=== PATIENT | male | born 1950 | race Caucasian/White ===

== ENCOUNTER 2016-11-21 01:52 | Emergency (ER) | payer MEDICARE, BC ==
[2016-11-21] MEDS ORDERED: Amoxicillin/Clavulanate TAB* 875 MG PO ONE (04:56)
[2016-11-21] MEDS ORDERED: Tetan/Diph/Pertus SYR(Tdap)* 0.5 ML SYR(BOOSTRIX) use SYR IM ONE (04:56)
[2016-11-21] MEDS ORDERED: Lidocaine 2% EPI 1:200000 MPF* 20 ML VIAL INJ ONE (05:34)
[2016-11-21] MEDS ORDERED: Lidocaine 2% EPI 1:200000 MPF* 20 ML VIAL ONE (05:36)
--- NOTE | 2016-11-21 07:35 | ED ---
Hi Branham Rebecca, scribed for Nils Snider MD on 11/21/16 at 0431 . Bite Injury/Animal - HPI Summary HPI Summary: Pt is a 66 y/o M who presents to ED s/p dog bite to the R forearm. At approximately 0100 this morning, the pt was trying to move his elderly dog when he bit him. 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 Unsure of his own Tetanus shot, believing to have had one in the last 10 years but is unsure. Right hand dominant. - History of Current Complaint Chief Complaint: EDAnimalBite Stated Complaint: DOG BITE Time Seen by Provider: 11/21/16 04:23 Hx Obtained From: Patient Onset of Injury: Happened hours ago Type of Bite: Pet Has Animal Been Immunized?: Yes Severity Currently: Severe Pain Intensity: 8 Pain Scale Used: 0-10 Numeric Aggravating Factor(s): Nothing Alleviating Factor(s): Nothing Associated Signs And Symptoms: Positive: Negative - Allergies/Home Medications Allergies/Adverse Reactions: Allergies Allergy/AdvReac Type Severity Reaction Status Date / Time No Known Allergies Allergy Verified 11/21/16 01:56 PMH/Surg Hx/FS Hx/Imm Hx Endocrine/Hematology History: Denies: Hx Diabetes Cardiovascular History: Denies: Hx Coronary Artery Disease, Hx Hypertension Infectious Disease History: No Infectious Disease History: Denies: Traveled Outside the [place] in Last 30 Days - Family History Known Family History: Negative: Diabetes - Social History Alcohol Use: None Substance Use Type: Reports: Marijuana Smoking Status (MU): Former Smoker Review of Systems Negative: Fever Positive: Other - Animal bite to the R forearm All Other Systems Reviewed And Are Negative: Yes Physical Exam - Summary Physical Exam Summary: The patient is well-nourished in no acute distress and in no acute pain. The skin is warm and dry and skin color reflects adequate perfusion. Examination of the R forearm reveals that it has a flap laceration down to the subcutaneous fat that is triangular. Distal neurovascular is intact. HEENT: The head is normocephalic and atraumatic. The pupils are equal and reactive. The conjunctivae are clear and without drainage. Nares are patent and without drainage. Mouth reveals moist mucous membranes and the throat is without erythema and exudate. The external ears are intact. The ear canals are patent and without drainage. The tympanic membranes are intact. Neck is supple with full range of motion and non-tender. There are no carotid bruits. There is no neck vein distension. Respiratory: Chest is non-tender. Lungs are clear to auscultation and breath sounds are symmetrical and equal. Cardiovascular: Hear is regular rate and rhythm. There is no murmur or rub auscultated. There is no peripheral edema and pulses are symmetrical and equal. Musculoskeletal: There is no back pain noted. Extremities are non-tender with full range of motion. There is good capillary refill. There is no peripheral edema or calf tenderness elicited. Neurological: Patient is alert and oriented to person, place and time. Psychiatric: The patient has an appropriate affect and does not exhibit any anxiety or depression. Triage Information Reviewed: Yes Vital Signs On Initial Exam: Initial Vitals Temp Pulse Resp BP Pulse Ox 97.2 F 105 20 172/126 99 11/21/16 01:54 11/21/16 01:54 11/21/16 01:54 11/21/16 01:54 11/21/16 01:54 Vital Signs Reviewed: Yes - Manjinder Coma Scale Coma Scale Total: 15 Procedures - Laceration/Wound Repair 1 Location: upper extremity Description: Irregular - Flap Anesthesia: 2.0%, Lido, Epi - 13 cc used Length, Depth and Shape: 3.5 cm long, about 3 cm wide, a triangle, down about 4 mm, Irrigated w/ Saline (ccs): 250 - Saline, by nursing Closure: Multilayer Debridement: moderate Suture Type: Prolene - Skin - 17 3.0 Prolene sutures, Vicryl - Subcutaneous - 8 3.0 Vicryl sutures Layer Closure?: Yes Sterile Dressing Applied?: Yes Diagnostics - Vital Signs Vital Signs Temp Pulse Resp BP Pulse Ox 11/21/16 01:54 97.2 F 105 20 172/126 99 - Laboratory Lab Statement: Any lab studies that have been ordered have been reviewed, and results considered in the medical decision making process. Bite Injury Course/Dx - Course Assessment/Plan: Pt is a 66 y/o M who presents to ED s/p dog bite to the R forearm. At approximately 0100 this morning, the pt was trying to move his elderly dog when he bit him. 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 Unsure of his own Tetanus shot, believing to have had one in the last 10 years but is unsure. Right hand dominant. Laceation was complex, down to the subcutaneous fat, was triangle shaped and about 3 cm in length. Laceration was irriagted, debrided and repaired (see note). Pt will be D/C to home with Dx of dog bite laceration and advised to f/u tomorrow. He understands and agrees. He was advised that this may get infected and whe was willing to allow me to proceed with closure as the laceration needed to be repaired due to the cosmetically large laceration. Elevated BP noted and advised to f/u with PCP. - Diagnoses Differential Diagnosis/HQI/PQRI: Positive: Laceration Provider Diagnosis: Dog bite of right forearm, complex laceration right arm with repair Discharge - Discharge Plan Condition: Stable Disposition: HOME Prescriptions: Amoxicillin/Clavulanate TAB* [Augmentin TAB 875*] 875 mg PO BID #20 tab Patient Education Materials: Care For Your Stitches (ED), Laceration (ED) Referrals: Dung Gamez MD [Primary Care Provider] - 3 Days Additional Instructions: Return in 24 hours for wound recheck. Leave the sterile dressing that was applied on the wound. The documentation as recorded by the Hi love Rebecca accurately reflects the service I personally performed and the decisions made by me, Nils Snider MD.
[2016-11-21 07:40] VITALS: BP 150/92
== END 2016-11-21 07:40 | disposition home or self-care (01) ==
LOC: ED 01:52
DX: S51.851A Open bite of right forearm, initial encounter (principal); W54.0XXA Bitten by dog, initial encounter; Y92.9 Unspecified place or not applicable; Z87.891 Personal history of nicotine dependence
CPT/HCPCS: 13121; 90471; 90715; 96372; 99282; A9270-GY

== ENCOUNTER 2016-11-23 19:52 | Emergency (ER) | payer MEDICARE, BC ==
[2016-11-23 20:00] VITALS: BP 174/82
--- NOTE | 2016-11-23 21:11 | ED ---
Skin Complaint - HPI Summary HPI Summary: 66M presents with infected right arm laceration. He was seen here on Fri and his dog bit laceration was sewed with deep and superficial sutures after extensive irrigation. states that had some redness around the area but was getting better. today the redness spread. denies any fever or drainage. is not DM. has pressure like pain in area. has full ROM of arm. has not taken anything for pain as has high pain tolerance. is right handed. was seen by primary yesterday so has line on arm that redness has spread across. - History of Current Complaint Chief Complaint: EDExtremityUpper Time Seen by Provider: 11/23/16 20:57 Stated Complaint: POSS INFECTION OF DOG BITE Pain Intensity: 4 - Allergy/Home Medications Allergies/Adverse Reactions: Allergies Allergy/AdvReac Type Severity Reaction Status Date / Time No Known Allergies Allergy Verified 11/21/16 01:56 PMH/Surg Hx/FS Hx/Imm Hx Endocrine/Hematology History: Denies: Hx Diabetes Cardiovascular History: Denies: Hx Coronary Artery Disease, Hx Hypertension - Immunization History Date of Tetanus Vaccine: 11/20/16 Date of Influenza Vaccine: none Infectious Disease History: No Infectious Disease History: Denies: Traveled Outside the [place] in Last 30 Days - Family History Known Family History: Negative: Diabetes - Social History Alcohol Use: Rare Substance Use Type: Reports: Marijuana Substance Use Comment - Amount & Last Used: occasionally Smoking Status (MU): Former Smoker Review of Systems Negative: Fever Negative: Chest Pain Negative: Shortness Of Breath Positive: Edema - right arm Positive: Other - erythema to right forearm All Other Systems Reviewed And Are Negative: Yes Physical Exam Triage Information Reviewed: Yes Vital Signs On Initial Exam: Initial Vitals Temp Pulse Resp BP Pulse Ox 97.8 F 95 14 174/82 98 11/23/16 19:55 11/23/16 19:55 11/23/16 19:55 11/23/16 19:55 11/23/16 19:55 Vital Signs Reviewed: Yes Appearance: Positive: Well-Appearing Skin: Positive: Warm, Dry, Other - healing laceration present on right foream that is 10cm in lenght that has area of loculation present around areas. with 24 cm by 10cm surrounding erythema Head/Face: Positive: Normal Head/Face Inspection Eyes: Positive: Normal, Conjunctiva Clear ENT: Positive: Normal ENT inspection, Pharynx normal, TMs normal Respiratory/Lung Sounds: Positive: Clear to Auscultation, Breath Sounds Present Cardiovascular: Positive: Normal, RRR Musculoskeletal: Positive: Strength/ROM Intact - right arm, Other - good pulses , edema to right arm - [place] Coma Scale Coma Scale Total: 15 Procedures - Incision and Drainage Site: right arm Anesthesia: Local Instrument(s): Scalpel Packing: Gauze Diagnostics - Vital Signs Vital Signs Temp Pulse Resp BP Pulse Ox 11/23/16 19:55 97.8 F 95 14 174/82 98 - Laboratory Result Diagrams: 11/23/16 21:30 11/23/16 21:30 Lab Statement: Any lab studies that have been ordered have been reviewed, and results considered in the medical decision making process. Course/Dx - Course Course Of Treatment: 66M presents with infected right arm laceration. He was seen here on Fri and his dog bit laceration was sewed with deep and superficial sutures after extensive irrigation. states that had some redness around the area but was getting better. today the redness spread. denies any fever or drainage. is not DM. has pressure like pain in area. has large area of erythema around laceration. when cut sutures copious amount of puss like 10cc came from wound. patient examined by dr sales and said should reopen laceration which did and packed it after irrigate it. patient wbc normal. told if develops fever to return. gave dose of zoysn and told to continue augmentin. patient understands and agrees with plan. - Differential Diagnoses - Skin Complaint Differential Diagnoses: Abscess, Cellulitis, Systemic Illness - Diagnoses Provider Diagnoses: Abscess of right arm Discharge - Discharge Plan Condition: Good Disposition: HOME Prescriptions: Amoxicillin/Clavulanate TAB* [Augmentin TAB 875*] 875 mg PO BID #10 tab Patient Education Materials: Abscess (ED) Referrals: Dung Gamez MD [Primary Care Provider] - Additional Instructions: Follow up with urgent care in two days Place warm compresses on area to allow area to drain Take Augmentin twice a day for 10 days The area will continue to drain but should lessen everyday as it heals. Return to ED if redness spreads or develop fever or any new or worsening symptoms
[2016-11-23 21:51] LABS: Hematocrit 38 % (42-52); Hemoglobin 13.1 g/dl (14.0-18.0); Mean Corpuscular HGB Conc 34 g/dl (31-36); Mean Corpuscular Hemoglobin 28 pg (27-31); Mean Corpuscular Volume 83 fL (80-94); Mean Platelet Volume 7 um3 (7.4-10.4); Red Blood Count 4.62 10^6/ul (4.0-5.4); Red Cell Distribution Width 14 % (10.5-15); White Blood Count 9.6 10^3/ul (3.5-10.8)
[2016-11-23] MEDS ORDERED: Lidocaine 2% EPI 1:200000 MPF* 20 ML VIAL ONE (21:55)
[2016-11-23 22:02] LABS: Albumin 3.8 g/dL (3.2-5.2); BUN/Creatinine Ratio 16.5 (8-20); Calcium 9.2 mg/dL (8.6-10.3); EGFR African American 125.8 (>60); EGFR Non-African American 97.8 (>60); Total Bilirubin 0.2 mg/dL (0.2-1.0); Total Protein 6.8 g/dL (6.4-8.9)
[2016-11-23] MEDS ORDERED: NS 0.9% 1000 ML* 1,000 ML IV ONE (22:48)
== END 2016-11-23 23:58 | disposition home or self-care (01) ==
LOC: ED 19:52
DX: L02.413 Cutaneous abscess of right upper limb (principal); S51.851A Open bite of right forearm, initial encounter; L08.9 Local infection of the skin and subcutaneous tissue, unspecified; W54.0XXA Bitten by dog, initial encounter; Y92.9 Unspecified place or not applicable; Z87.891 Personal history of nicotine dependence
CPT/HCPCS: 10060; 36415; 80053; 83605; 85025; 86141; 87040; 87070; 87077; 87186; 87205; 96374; 99282; J2543

== ENCOUNTER 2016-11-25 08:28 | Emergency (ER) | payer MEDICARE, BC ==
[2016-11-25 08:36] VITALS: BP 154/93
--- NOTE | 2016-11-25 09:02 | UC ---
Skin Complaint HPI - HPI Summary HPI Summary: Patient presents s/p dog bite that resulted in abscess formation. He presents for wound check and dressing change today. He states it feels much better with decreased swelling, redness and pain. He reports he is s/p bite, sutures, removal of sutures, and I+D of wounds. He reports he had IV ABX, and now is on oral ABX, and is doing much better. - History of Current Complaint Chief Complaint: UCGeneralIllness Time Seen by Provider: 11/25/16 08:44 Stated Complaint: WOUND CHECK Hx Obtained From: Patient Onset/Duration: Sudden Onset, Lasting Days Skin Exposure Onset/Duration: Days Ago Timing: Constant Onset Severity: Severe Current Severity: Moderate Location: Discrete - rigth forearm. Character: Pain, Redness Aggravating Factor(s): Touch Alleviating Factor(s): Heat Associated Signs & Symptoms: Positive: Bruising, Tenderness Related History: Other: - dog bite - Allergy/Home Medications Allergies/Adverse Reactions: Allergies Allergy/AdvReac Type Severity Reaction Status Date / Time No Known Allergies Allergy Verified 11/25/16 08:31 Review of Systems Skin: Other - dog bite right forearm All Other Systems Reviewed And Are Negative: Yes PMH/Surg Hx/FS Hx/Imm Hx Previously Healthy: Yes - Surgical History Surgical History: Yes Surgery Procedure, Year, and Place: appy,osteotomy [facility] - Family History Known Family History: Positive: Cardiac Disease, Hypertension Negative: Diabetes - Social History Occupation: Employed Part-time Lives: Alone Alcohol Use: None Substance Use Type: Marijuana Substance Use Comment - Amount & Last Used: occasionally Smoking Status (MU): Former Smoker Physical Exam Triage Information Reviewed: Yes Appearance: Well-Appearing Vital Signs: Initial Vital Signs Temp 98.3 F 11/25/16 08:33 Pulse 93 11/25/16 08:33 Resp 16 11/25/16 08:33 BP 154/93 11/25/16 08:33 Pulse Ox 100 11/25/16 08:33 Vital Signs Reviewed: Yes Eye Exam: Normal ENT Exam: Normal Neck exam: Normal Respiratory Exam: Normal Cardiovascular Exam: Normal Musculoskeletal Exam: Normal Skin Exam: Other - wound dressing removed, irriagated with serile water, two suture strings visualized in of the wound, could not find point of origins, Dr. Severino consulted to see the patient. Wound based beefy red tissue, with surrrounding induration, but well within the lines of demarcation. bruising noted at distal wrist, and soft tissue swelling remaining. patient reports improvement. My first observation of the wound. Referred to wound care. Course/Dx - Course Course Of Treatment: Patient was sent to the ER to have the stitiches removed from the wound base that I could not do here. I called the ER and gve report. Patient will go to ER. The wound was irriagated and repacted DSD placed. Discharged in stabel condition. - Differential Diagnoses - Skin Complaint Differential Diagnoses: Other - wound care - Diagnoses Provider Diagnoses: wound care Discharge - Discharge Plan Condition: Stable [facility] Patient Education Materials: Acute Wound Care (ED) Referrals: Dung Gamez MD [Primary Care Provider] - Additional Instructions: Patient instructed to go to ER to have sutures removed from dog bite that were placed there.
== END 2016-11-25 09:53 | disposition home or self-care (01) ==
LOC: UCEAST 08:28
DX: S50.871D Other superficial bite of right forearm, subsequent encounter (principal); W54.0XXD Bitten by dog, subsequent encounter
CPT/HCPCS: 99211; G0463

== ENCOUNTER 2016-11-25 09:46 | Emergency (ER) | payer MEDICARE, BC ==
[2016-11-25 09:55] VITALS: BP 173/83
--- NOTE | 2016-11-25 11:12 | ED ---
ED Suture/Wound Check - HPI Summary HPI Summary: Pt here for wound recheck. Was seen 11/21/2016 with dog bite. Unfortunately this was large and complex - provider copiously irrigated but decided to close d/t size. Pt was aware wound could become infected and when he had swelling, redness and pain 2 days later, he returned here for recheck - wound was reopened and irrigated - packed and provided with zosyn IV. Pt reports immediate relief and has been improving since. He was instructed to have wound check with packing changes which he's been doing. Went to [facility] today and wound pakcing/dressing changed however there was concern re: retained sutures still - provider was not sure how to proceed so sent pt here. Pt denies fever, chills , redness, swelling, purulent drainage. Has been taking PO anbx and moving wrist and fingers to reduce swelling, pain. He feels he's improving greatly - just here per recommendation. - History Of Current Complaint Chief Complaint: EDLacSutureRecheck Stated Complaint: STITCHES REMOVE Time Seen by Provider: 11/25/16 10:01 Hx Obtained From: Patient Pain Intensity: 2 - Allergies/Home Medications Allergies/Adverse Reactions: Allergies Allergy/AdvReac Type Severity Reaction Status Date / Time No Known Allergies Allergy Verified 11/25/16 08:31 PMH/Surg Hx/FS Hx/Imm Hx Previously Healthy: Yes Endocrine/Hematology History: Denies: Hx Anticoagulant Therapy, Hx Blood Disorders, Hx Diabetes, Autoimmune Disease Cardiovascular History: Denies: Hx Coronary Artery Disease, Hx Hypertension - Surgical History Surgery Procedure, Year, and Place: appy,[facility] - Immunization History Date of Tetanus Vaccine: 11/20/16 Date of Influenza Vaccine: none Infectious Disease History: No Infectious Disease History: Denies: Hx Clostridium Difficile, Hx Hepatitis, Hx Human Immunodeficiency Virus (HIV), Hx of Known/Suspected MRSA, Hx Shingles, Hx Tuberculosis, Hx Known/ Suspected VRE, Hx Known/Suspected VRSA, History Other Infectious Disease, Traveled Outside the [place] in Last 30 Days - Family History Known Family History: Positive: Cardiac Disease, Hypertension Negative: Diabetes - Social History Occupation: Retired - [employer] Alcohol Use: None Substance Use Type: Reports: Marijuana Substance Use Comment - Amount & Last Used: occasionally Smoking Status (MU): Former Smoker Review of Systems Constitutional: Negative Negative: Fever, Chills, Fatigue Musculoskeletal: Negative Skin: Other - see HPI Neurological: Negative Psychological: Normal All Other Systems Reviewed And Are Negative: Yes Physical Exam Triage Information Reviewed: Yes Vital Signs On Initial Exam: Initial Vitals Temp Pulse Resp BP Pulse Ox 96.8 F 88 17 173/83 100 11/25/16 09:49 11/25/16 09:49 11/25/16 09:49 11/25/16 09:49 11/25/16 09:49 Vital Signs Reviewed: Yes Appearance: Positive: Well-Appearing, No Pain Distress, Well-Nourished Skin: Positive: Warm - wound over Rt forearm (vental surface) packed with gauze - previously placed marker border indicates redness has reduced from original position - no purulent drainage; there are [address] within deeper tissue (these appear to be vicryl sutures already placed - no prolene sutures observed). Because a few pieces were already cut free, these small ends were removed from wound - no bleeding and pt tolerated well - wound still intact ; there are still a few vicryl sutures in place - they do not appear to be irritating the pt, infected around the site or disrupted from their original function so will leave in place; wound redressed w/ sterile gauze and CHIVO wrap. Head/Face: Positive: Normal Head/Face Inspection Eyes: Positive: EOMI ENT: Positive: Hearing grossly normal Respiratory/Lung Sounds: Positive: Breath Sounds Present Cardiovascular: Positive: Pulses are Symmetrical in both Upper and Lower Extremities - subtle edema of Rt hand compared to Lt - well perfused, no pitting, NTTP Musculoskeletal: Positive: Normal, Strength/ROM Intact Neurological: Positive: Normal, Sensory/Motor Intact, Alert, Oriented to Person Place, Time, CN Intact II-III Psychiatric: Positive: Normal - [place] Coma Scale Coma Scale Total: 15 Diagnostics - Vital Signs Vital Signs Temp Pulse Resp BP Pulse Ox 11/25/16 09:49 96.8 F 88 17 173/83 100 - Laboratory Lab Statement: Any lab studies that have been ordered have been reviewed, and results considered in the medical decision making process. Course/Dx - Clinical Impression Provider Diagnoses: Encounter for wound re-check Discharge - Discharge Plan Condition: Stable Disposition: HOME Patient Education Materials: Incision and Drainage (ED), Wound Healing and Your Diet (ED) Referrals: Dung Gamez MD [Primary Care Provider] - Additional Instructions: Continue to have dressing changes performed as recommended Keep wound dry until advised otherwise Rest, elevate You may continue warm compresses as desired You may take ibuprofen with food for pain, swelling Complete antibiotics as directed *If you develop fever, chills, nausea, vomiting, redness, swelling, streaking, return to ED
== END 2016-11-25 11:48 | disposition home or self-care (01) ==
LOC: ED 09:46
DX: S51.801S Unspecified open wound of right forearm, sequela (principal); W54.0XXS Bitten by dog, sequela
CPT/HCPCS: 99281